=== PATIENT | female | born 1985 | race Caucasian/White ===

== ENCOUNTER 2016-06-29 18:21 | Emergency (ER) | payer OTHER ==
[~2016-06-29] VITALS: Ht 154.9 cm; Wt 107.2 kg
[~2016-06-29 18:21] MED LIST: ABILIFY10 MG PO; ABILIFY15 MG PO; ABILIFY5 MG PO; AMBIEN CR6.25 MG PO; AMOX TR-K CLV1 EAC4 PO; ATARAX,VISTARIL25 MG PO; BUSPAR10 MG PO; BUSPAR15 MG PO; BUSPIRONE HCL10 MG PO; BUSPIRONE HCL15 MG PO; CELEXA10 MG PO; CIPRO500 MG PO; CITALOPRAM HBR20 MG PO; CITALOPRAM HBR40 MG PO; CLEOCIN300 MG PO; CLONAZEPAM0.5 MG PO; CLONIDINE HCL0.1 MG PO; DIAZEPAM10 MG PO; DIAZEPAM5 MG PO; EFFEXOR75 MG PO; FLONASE16 G1 BOTH NARES; KLONOPIN0.5 M1 PO; LORATADINE10 M2 PO; MECLIZINE HCL25 MG PO; MOTRIN800 MG PO; NOHOMEMEDS; PREDNISONE10 MG PO; SERTRALINE HCL50 MG PO; TORADOL IM; TORADOL10 MG PO; VALIUM5 MG PO; VENLAFAXINE HCL75 MG PO; ZANTAC150 MG PO; ZOFRAN ODT4 MG PO; ZOFRAN4 MG PO; ZOLPIDEM TARTRAT5 MG PO
[2016-06-29 19:13] LABS: HEMATOCRIT 40.4 % (36.0-46.0); MCH 29.6 PG (29.0-34.0); MCHC 32.9 G/DL (30.0-36.0); MCV 89.8 FL (83-99); MEAN PLAT.VOLUME 9.1 uM^3 (9.5-12.4); PLATELET COUNT 299 K/uL (156-360); RBC DIS.WIDTH-CV 13.8 % (11.8-14.6); RBC DIS.WIDTH-SD 45.2 % (39-53); WHITE BLOOD COUNT 9.2 K/uL (4.1-10.2)
[2016-06-29 19:24] LABS: CHLORIDE 107 mEq/L (99-109); POTASSIUM 3.7 mEq/L (3.7-5.4); SODIUM 140 mEq/L (136-147)
[2016-06-29 19:26] LABS: GLUCOSE 138 mg/dL (70-99)
[2016-06-29 19:27] LABS: ANION GAP 13 MEQ/L (2-14)
[2016-06-29 19:28] LABS: TOTAL BILIRUBIN 0.2 mg/dL (0.0-1.0)
[2016-06-29 19:29] LABS: ALKALINE PHOSPHATASE 88 IU/L (3-129)
[2016-06-29 19:30] LABS: GFR ESTIMATE (CALCULATED) > 59 mL/min/
[2016-06-29 19:31] LABS: UREA NITROGEN (BUN) 11 mg/dL (9-23)
[2016-06-29 19:38] LABS: QUANTITATIVE HCG < 4.0 MIU/ML
[2016-06-29 20:12] LABS: ADD MIUA? YES; BILIRUBIN NEGATIVE; BLOOD MODERATE; COLOR STRAW ((YELLOW)); GLUCOSE (STRIP) NEGATIVE; KETONES NEGATIVE; LEUKOCYTES TRACE; NITRITE NEGATIVE; PROTEIN (STRIP) NEGATIVE; SPECIFIC GRAVITY 1.008 (1.000-1.030); UROBILINOGEN 0.2 MG/DL (0.2-1.0)
[2016-06-29 21:07] LABS: BACTERIA NONE SEEN /HPF; EPITHELIAL CELLS 1+ /HPF; MUCUS TRACE /LPF; RED BLOOD CELLS 0-5 /HPF (0-5); UCUL ADDED? NO; WHITE BLOOD CELLS 0-5 /HPF (0-5)
[2016-06-29] MEDS ORDERED: ULTRAM50 MG PO (23:19)
[2016-06-29 23:33] VITALS: BP 110/71
== END 2016-06-29 23:40 | disposition home or self-care (01) ==
LOC: RME 18:21 → EME 18:21 → RME 23:40
PROVIDERS: Nurse Practitioner Family
DX: N93.9 Abnormal uterine and vaginal bleeding, unspecified (principal); F17.200 Nicotine dependence, unspecified, uncomplicated; F32.9 Major depressive disorder, single episode, unspecified; F41.9 Anxiety disorder, unspecified; G43.909 Migraine, unspecified, not intractable, without status migrainosus; D25.9 Leiomyoma of uterus, unspecified
CPT/HCPCS: 76856; 80053; 81003; 84702; 85027; 99281; 99284; J1885

== ENCOUNTER 2016-10-19 20:12 | Emergency (ER) | payer OTHER ==
[~2016-10-19] VITALS: Ht 152.4 cm; Wt 105.4 kg
[~2016-10-19 20:12] MED LIST changes: +ULTRAM50 MG PO
[2016-10-19 21:29] LABS: HEMATOCRIT 39.6 % (36.0-46.0); MCH 29.7 PG (29.0-34.0); MCHC 32.8 G/DL (30.0-36.0); MCV 90.6 FL (83-99); MEAN PLAT.VOLUME 9.3 uM^3 (9.5-12.4); PLATELET COUNT 280 K/uL (156-360); RBC DIS.WIDTH-CV 14.1 % (11.8-14.6); RBC DIS.WIDTH-SD 47.1 % (39-53); RED BLOOD COUNT 4.37 M/uL (3.80-5.20); WHITE BLOOD COUNT 9.6 K/uL (4.1-10.2)
[2016-10-19 21:33] LABS: CHLORIDE 106 mEq/L (99-109); SODIUM 139 mEq/L (136-147)
[2016-10-19 21:35] LABS: GLUCOSE 89 mg/dL (70-99)
[2016-10-19 21:36] LABS: ANION GAP 9 MEQ/L (2-14)
[2016-10-19 21:37] LABS: TOTAL BILIRUBIN 0.2 mg/dL (0.0-1.0)
[2016-10-19 21:38] LABS: ALKALINE PHOSPHATASE 90 IU/L (3-129)
[2016-10-19 21:39] LABS: GFR ESTIMATE (CALCULATED) > 59 mL/min/
[2016-10-19 21:40] LABS: UREA NITROGEN (BUN) 14 mg/dL (9-23)
[2016-10-19 21:47] LABS: TROP-I INTERPRETATION NEGATIVE; TROPONIN-I < 0.01 ng/mL (0.0-0.30)
[2016-10-19 21:48] LABS: QUANTITATIVE HCG < 4.0 MIU/ML
[2016-10-20] MEDS ORDERED: MOTRIN800 MG PO (00:03)
[2016-10-20 00:37] LABS: TROP-I INTERPRETATION NEGATIVE; TROPONIN-I < 0.01 ng/mL (0.0-0.30)
[2016-10-20 00:40] VITALS: BP 125/80
== END 2016-10-20 00:43 | disposition home or self-care (01) ==
LOC: EME 20:12
PROVIDERS: Nurse Practitioner Family
DX: R07.9 Chest pain, unspecified (principal); M25.512 Pain in left shoulder; I10 Essential (primary) hypertension; E78.5 Hyperlipidemia, unspecified; F32.9 Major depressive disorder, single episode, unspecified; F41.9 Anxiety disorder, unspecified; F17.200 Nicotine dependence, unspecified, uncomplicated; Z90.49 Acquired absence of other specified parts of digestive tract
CPT/HCPCS: 71020; 80053; 84484; 84702; 85027; 93005; J1885

== ENCOUNTER 2017-05-10 17:12 | Emergency (ER) | payer OTHER ==
[~2017-05-10] VITALS: Ht 154.9 cm; Wt 102.5 kg
[~2017-05-10 17:12] MED LIST changes: +BENTYL20 MG PO
[2017-05-10 17:53] LABS: HEMOGLOBIN 14.1 G/DL (11.9-15.5); MCH 29.7 PG (29.0-34.0); MCHC 33.6 G/DL (30.0-36.0); MCV 88.6 FL (83-99); PLATELET COUNT 295 K/uL (156-360); RBC DIS.WIDTH-CV 14.2 % (11.8-14.6); RBC DIS.WIDTH-SD 45.6 % (39-53); RED BLOOD COUNT 4.74 M/uL (3.80-5.20)
[2017-05-10 18:02] LABS: ALBUMIN 4.2 g/dL (3.2-4.8)
[2017-05-10 18:03] LABS: CHLORIDE 108 mEq/L (99-109); POTASSIUM 4.2 mEq/L (3.7-5.4); SODIUM 140 mEq/L (136-147)
[2017-05-10 18:05] LABS: GLUCOSE 93 mg/dL (70-99); TOTAL PROTEIN 7.7 g/dL (6.4-8.3)
[2017-05-10 18:07] LABS: TOTAL BILIRUBIN 0.2 mg/dL (0.0-1.0)
[2017-05-10 18:08] LABS: ALKALINE PHOSPHATASE 100 IU/L (3-129)
[2017-05-10 18:09] LABS: CREATININE 0.8 mg/dL (0.6-1.3); GFR ESTIMATE (CALCULATED) > 59 mL/min/
[2017-05-10 18:10] LABS: AST (GOT) 14 IU/L (2-34); UREA NITROGEN (BUN) 9 mg/dL (9-23)
[2017-05-10 18:11] LABS: ALT (GPT) 20 IU/L (3-49)
[2017-05-10 18:20] LABS: QUANTITATIVE HCG < 4.0 MIU/ML
[2017-05-10 18:25] LABS: APPEARANCE SL.HAZY ((CLEAR)); BILIRUBIN NEGATIVE; BLOOD NEGATIVE; COLOR YELLOW ((YELLOW)); GLUCOSE (STRIP) NEGATIVE; KETONES NEGATIVE; LEUKOCYTES TRACE; NITRITE NEGATIVE; PROTEIN (STRIP) NEGATIVE; SPECIFIC GRAVITY 1.014 (1.000-1.030); UROBILINOGEN 0.2 MG/DL (0.2-1.0)
[2017-05-10 18:34] LABS: BACTERIA NONE SEEN /HPF; EPITHELIAL CELLS 1+ /HPF; MUCUS TRACE /LPF; RED BLOOD CELLS 0-5 /HPF (0-5); UCUL ADDED? NO; WHITE BLOOD CELLS 0-5 /HPF (0-5)
[2017-05-10] MEDS ORDERED: ZOFRAN ODT4 MG PO (18:57)
[2017-05-10 19:09] VITALS: BP 122/76
== END 2017-05-10 19:15 | disposition home or self-care (01) ==
LOC: EME 17:12
DX: R11.0 Nausea (principal); R42 Dizziness and giddiness; T43.225A Adverse effect of selective serotonin reuptake inhibitors, initial encounter; F32.9 Major depressive disorder, single episode, unspecified; F41.9 Anxiety disorder, unspecified; F17.200 Nicotine dependence, unspecified, uncomplicated; Z90.49 Acquired absence of other specified parts of digestive tract; Z98.51 Tubal ligation status; Z91.040 Latex allergy status; Z88.2 Allergy status to sulfonamides; Z88.8 Allergy status to other drugs, medicaments and biological substances
CPT/HCPCS: 80053; 81003; 84702; 85027; 99281; 99284

== ENCOUNTER 2017-07-29 08:25 | Emergency (ER) | payer OTHER ==
[~2017-07-29] VITALS: Ht 162.6 cm; Wt 103.1 kg
[2017-07-29 08:55] LABS: HEMATOCRIT 40.9 % (36.0-46.0); HEMOGLOBIN 13.9 G/DL (11.9-15.5); MCV 91.1 FL (83-99); PLATELET COUNT 235 K/uL (156-360); RBC DIS.WIDTH-CV 14.6 % (11.8-14.6); RBC DIS.WIDTH-SD 49.1 % (39-53); RED BLOOD COUNT 4.49 M/uL (3.80-5.20); WHITE BLOOD COUNT 9.5 K/uL (4.1-10.2)
[2017-07-29 09:05] LABS: CHLORIDE 104 mEq/L (99-109); POTASSIUM 4.5 mEq/L (3.7-5.4); SODIUM 138 mEq/L (136-147)
[2017-07-29 09:07] LABS: GLUCOSE 103 mg/dL (70-99)
[2017-07-29 09:11] LABS: CREATININE 0.7 mg/dL (0.6-1.3); GFR ESTIMATE (CALCULATED) > 59 mL/min/
[2017-07-29 09:12] LABS: UREA NITROGEN (BUN) 11 mg/dL (9-23)
[2017-07-29] MEDS ORDERED: REGLAN10 MG PO (10:31)
[2017-07-29] MEDS ORDERED: MOTRIN800 MG PO (10:31)
[2017-07-29 10:45] VITALS: BP 127/82
== END 2017-07-29 10:46 | disposition home or self-care (01) ==
LOC: EME 08:25
DX: G43.909 Migraine, unspecified, not intractable, without status migrainosus (principal); H53.8 Other visual disturbances; F41.9 Anxiety disorder, unspecified; F32.9 Major depressive disorder, single episode, unspecified; Z88.2 Allergy status to sulfonamides; Z91.040 Latex allergy status; F17.200 Nicotine dependence, unspecified, uncomplicated
CPT/HCPCS: 70450; 71046; 80048; 85027; 93005; 99281; 99284

== ENCOUNTER 2017-08-09 16:44 | Emergency (ER) | payer OTHER ==
[~2017-08-09] VITALS: Ht 154.9 cm; Wt 104.3 kg
[~2017-08-09 16:44] MED LIST changes: +REGLAN10 MG PO
[2017-08-09 21:30] VITALS: BP 159/65
[2017-08-09 22:47] LABS: APPEARANCE CLEAR/COLORLESS; CSF TUBE NUMBER TUBE #3; RED CELL COUNT 0 /MM^3 (0-1); WHITE CELL COUNT 3 /MM^3 (0-5)
[2017-08-09 22:50] LABS: CSF PROTEIN 29 mg/dL (15-45)
[2017-08-09 22:55] LABS: GLUCOSE, CSF 69 mg/dL (40-80)
[2017-08-09 23:08] LABS: CSF EOSINOPHILS 0 % (0-25); MONONUCLEAR WBC'S 100 % (50-90); POLYNUCLEAR WBC'S 0 % (0-3)
== END 2017-08-09 21:33 | disposition home or self-care (01) ==
LOC: EME 16:44
PROVIDERS: Specialist
DX: H47.10 Unspecified papilledema (principal); F32.9 Major depressive disorder, single episode, unspecified; F41.9 Anxiety disorder, unspecified; F17.200 Nicotine dependence, unspecified, uncomplicated; E66.9 Obesity, unspecified; Z68.41 Body mass index [BMI] 40.0-44.9, adult; Z91.040 Latex allergy status; Z88.2 Allergy status to sulfonamides
CPT/HCPCS: 82945; 84157; 89051; 99281; 99284